=== PATIENT | female | born 1985 | race Two or more races ===

== ENCOUNTER → 2018-11-27 | Outpatient (REF) | payer OTHER ==
[2018-12-02 14:11] LABS: HPV HYBRID CAPTURE II Negative (Negative)
== END ==
LOC: M LAB LCGH 13:12
PROVIDERS: ATTEND Nurse Practitioner Adult Health
DX: Z12.4 Encounter for screening for malignant neoplasm of cervix (principal)
CPT/HCPCS: 87624; G0123